=== PATIENT | male | born 1990 | race Caucasian/White ===

== ENCOUNTER → 2019-07-01 | Outpatient (CLI) | payer OTHER ==
--- NOTE | 2019-07-01 15:29 | Diagnostic Imaging Report ---
INDICATION: Left hip pain. TIME OF EXAM: 03:03 p.m. FINDINGS: Multiple views of left hip were obtained. Femoral acetabular alignment is normal. Joint spaces are maintained. Femoral head and neck appear intact. No fractures are seen. Left-sided rami are unremarkable. IMPRESSION: No acute bony abnormality is detected. Dictated by: Dictated on workstation # [id number]
== END ==
LOC: RAD FS 14:48
PROVIDERS: ATTEND Nurse Practitioner
DX: M25.552 Pain in left hip (principal)
CPT/HCPCS: 73502